=== PATIENT | male | born 1945 | race Caucasian/White ===

== ENCOUNTER → 2016-06-15 | Outpatient (CLI) | payer BC, OTHER ==
[~2016-06-15] MED LIST: ALBUTEROL0.83 MG/ML INH; ASPIRIN ADULT L81 M3 PO; HCTZ 25MG25 MG PO; LISINOPRIL30 MG PO; METFORMIN500 MG PO; MULTI VITAMINS1 TAB PO; NIACINOL500 MG PO; PROSCAR PO; ZOCOR 20MG20 MG PO; ZYLOPRIM 100MG100 MG PO
== END ==
LOC: LAB 08:21
DX: E29.1 Testicular hypofunction (principal)

== ENCOUNTER → 2016-09-19 | Outpatient (CLI) | payer BC, OTHER ==
[2015-02-16 09:28] VITALS: BP 130/67
== END ==
LOC: LAB 08:59
DX: E29.1 Testicular hypofunction (principal); N40.1 Benign prostatic hyperplasia with lower urinary tract symptoms; R39.12 Poor urinary stream

== ENCOUNTER → 2016-12-31 | Outpatient (CLI) | payer BC, OTHER ==
[2015-02-16 09:28] VITALS: BP 130/67
== END ==
LOC: LAB 08:51
DX: Z13.6 Encounter for screening for cardiovascular disorders (principal); I10 Essential (primary) hypertension; E11.9 Type 2 diabetes mellitus without complications

== ENCOUNTER → 2017-01-04 | Outpatient (CLI) | payer BC, OTHER ==
[2015-02-16 09:28] VITALS: BP 130/67
== END ==
LOC: CARDREHAB 09:22
DX: Z13.6 Encounter for screening for cardiovascular disorders (principal); I10 Essential (primary) hypertension; E11.9 Type 2 diabetes mellitus without complications; Z87.891 Personal history of nicotine dependence; Z82.49 Family history of ischemic heart disease and other diseases of the circulatory system; E78.5 Hyperlipidemia, unspecified
CPT/HCPCS: A9500

== ENCOUNTER → 2017-06-20 | Outpatient (CLI) | payer BC, OTHER ==
[2015-02-16 09:28] VITALS: BP 130/67
== END ==
LOC: LAB 09:34
DX: E29.1 Testicular hypofunction (principal)

== ENCOUNTER → 2017-07-03 | Outpatient (CLI) | payer BC, OTHER ==
[2015-02-16 09:28] VITALS: BP 130/67
== END ==
LOC: LAB 10:52
DX: Z13.6 Encounter for screening for cardiovascular disorders (principal); I10 Essential (primary) hypertension; E11.9 Type 2 diabetes mellitus without complications

== ENCOUNTER → 2017-11-20 | Outpatient (CLI) | payer MEDICARE, OTHER ==
[2015-02-16 09:28] VITALS: BP 130/67
== END ==
LOC: RAD 10:51
DX: M19.042 Primary osteoarthritis, left hand (principal)

== ENCOUNTER → 2017-11-25 | Outpatient (CLI) | payer MEDICARE, OTHER ==
[2015-02-16 09:28] VITALS: BP 130/67
[2017-11-25 08:56] LABS: HEMATOCRIT 50.8 % (42.0-52.0); HEMOGLOBIN 16.9 g/dL (13.5-18.0); MEAN PLATELET VOLUME 9.1 fl (7.4-10.4); RED BLOOD COUNT 5.34 M/mm3 (4.20-5.60); RED CELL DISTRIBUTION WIDTH 14.9 % (11.5-14.5); WHITE BLOOD COUNT 6.9 K/mm3 (4.8-10.8)
[2017-11-25 09:18] LABS: ALBUMIN 4.1 g/dL (3.5-5.0); BUN/CREATININE RATIO 17.7 (6.0-26.0); CALCIUM 9.4 mg/dL (8.4-10.2); POTASSIUM 4.3 mmol/L (3.6-5.0); TOTAL BILIRUBIN 1.1 mg/dL (0.2-1.3); TOTAL PROTEIN 7.9 g/dL (6.3-8.2)
[2017-11-25 23:20] LABS: TESTOSTERONE 414 ng/dL (221-716)
== END ==
LOC: LAB 08:36
PROVIDERS: Family Medicine
DX: E29.1 Testicular hypofunction (principal); N40.1 Benign prostatic hyperplasia with lower urinary tract symptoms; R39.12 Poor urinary stream

== ENCOUNTER → 2018-02-24 | Outpatient (CLI) | payer MEDICARE, OTHER ==
[2015-02-16 09:28] VITALS: BP 130/67
[2018-02-24 23:44] LABS: TESTOSTERONE 430 ng/dL (221-716)
== END ==
LOC: LAB 08:22
PROVIDERS: Urology
DX: N40.1 Benign prostatic hyperplasia with lower urinary tract symptoms (principal); E29.1 Testicular hypofunction

== ENCOUNTER → 2018-08-25 | Outpatient (CLI) | payer MEDICARE, OTHER ==
[2015-02-16 09:28] VITALS: BP 130/67
[2018-08-25 08:47] LABS: HEMATOCRIT 52.4 % (42.0-52.0); HEMOGLOBIN 17.6 g/dL (13.5-18.0); MEAN PLATELET VOLUME 10.3 fl (7.4-10.4); RED BLOOD COUNT 5.45 M/mm3 (4.20-5.60); RED CELL DISTRIBUTION WIDTH 14.8 % (11.5-14.5); WHITE BLOOD COUNT 7.1 K/mm3 (4.8-10.8)
[2018-08-26 01:41] LABS: TESTOSTERONE 927 ng/dL (221-716)
== END ==
LOC: LAB 07:47
PROVIDERS: Urology
DX: E29.1 Testicular hypofunction (principal); N40.1 Benign prostatic hyperplasia with lower urinary tract symptoms

== ENCOUNTER → 2019-02-23 | Outpatient (CLI) | payer MEDICARE, OTHER ==
[2015-02-16 09:28] VITALS: BP 130/67
[2019-02-23 08:52] LABS: HEMATOCRIT 50.7 % (42.0-52.0); HEMOGLOBIN 17.3 g/dL (13.5-18.0); MEAN PLATELET VOLUME 9.5 fl (7.4-10.4); RED BLOOD COUNT 5.27 M/mm3 (4.20-5.60); RED CELL DISTRIBUTION WIDTH 14.1 % (11.5-14.5); WHITE BLOOD COUNT 8.2 K/mm3 (4.8-10.8)
== END ==
LOC: LAB 08:30
PROVIDERS: Urology
DX: E29.1 Testicular hypofunction (principal)

== ENCOUNTER → 2019-03-17 | Outpatient (CLI) | payer MEDICARE, OTHER ==
[2015-02-16 09:28] VITALS: BP 130/67
[2019-03-17 09:20] LABS: POTASSIUM 4.1 mmol/L (3.5-5.1)
[2019-03-17 09:21] LABS: ALBUMIN 4.1 g/dL (3.4-4.8)
[2019-03-17 09:22] LABS: CALCIUM 9.7 mg/dL (8.3-10.5)
[2019-03-17 09:23] LABS: TOTAL PROTEIN 7.5 g/dL (6.2-8.1)
[2019-03-17 09:25] LABS: TOTAL BILIRUBIN 1.2 mg/dL (0.2-1.2)
== END ==
LOC: LAB 08:56
PROVIDERS: Family Medicine
DX: Z13.6 Encounter for screening for cardiovascular disorders (principal); I10 Essential (primary) hypertension; E11.9 Type 2 diabetes mellitus without complications; M10.9 Gout, unspecified; E78.2 Mixed hyperlipidemia

== ENCOUNTER → 2019-04-17 | Outpatient (CLI) | payer MEDICARE, OTHER ==
[2015-02-16 09:28] VITALS: BP 130/67
[2019-04-17 09:13] LABS: POTASSIUM 4.3 mmol/L (3.5-5.1)
[2019-04-17 09:14] LABS: CALCIUM 9.3 mg/dL (8.3-10.5)
== END ==
LOC: LAB 08:48
PROVIDERS: Family Medicine
DX: I12.9 Hypertensive chronic kidney disease with stage 1 through stage 4 chronic kidney disease, or unspecified chronic kidney disease (principal); N18.3 Chronic kidney disease, stage 3 (moderate); M10.9 Gout, unspecified

== ENCOUNTER → 2019-05-15 | Outpatient (CLI) | payer MEDICARE, OTHER ==
[2015-02-16 09:28] VITALS: BP 130/67
[2019-05-15 11:22] LABS: POTASSIUM 4.3 mmol/L (3.5-5.1)
[2019-05-15 11:23] LABS: CALCIUM 9.8 mg/dL (8.3-10.5)
== END ==
LOC: LAB 09:35
PROVIDERS: Family Medicine
DX: I12.9 Hypertensive chronic kidney disease with stage 1 through stage 4 chronic kidney disease, or unspecified chronic kidney disease (principal); N18.3 Chronic kidney disease, stage 3 (moderate); M10.9 Gout, unspecified

== ENCOUNTER → 2019-10-22 | Outpatient (CLI) | payer MEDICARE, OTHER ==
[2015-02-16 09:28] VITALS: BP 130/67
[2019-10-22 09:31] LABS: HEMATOCRIT 51.2 % (42.0-52.0); HEMOGLOBIN 17.7 g/dL (13.5-18.0); MEAN PLATELET VOLUME 9.9 fl (7.4-10.4); POTASSIUM 4.5 mmol/L (3.5-5.1); RED BLOOD COUNT 5.23 M/mm3 (4.20-5.60); RED CELL DISTRIBUTION WIDTH 14.1 % (11.5-14.5); WHITE BLOOD COUNT 7.5 K/mm3 (4.8-10.8)
[2019-10-22 09:32] LABS: CALCIUM 9.3 mg/dL (8.3-10.5)
== END ==
LOC: LAB 08:27
PROVIDERS: Urology
DX: N18.3 Chronic kidney disease, stage 3 (moderate) (principal); I12.9 Hypertensive chronic kidney disease with stage 1 through stage 4 chronic kidney disease, or unspecified chronic kidney disease; M10.9 Gout, unspecified; N40.1 Benign prostatic hyperplasia with lower urinary tract symptoms; E29.1 Testicular hypofunction

== ENCOUNTER → 2020-01-11 | Outpatient (CLI) | payer MEDICARE, OTHER ==
[2015-02-16 09:28] VITALS: BP 130/67
[2020-01-11 11:40] LABS: POTASSIUM 4.1 mmol/L (3.5-5.1)
[2020-01-11 11:41] LABS: CALCIUM 9.2 mg/dL (8.3-10.5)
== END ==
LOC: LAB 11:18
PROVIDERS: Family Medicine
DX: I12.9 Hypertensive chronic kidney disease with stage 1 through stage 4 chronic kidney disease, or unspecified chronic kidney disease (principal); N18.3 Chronic kidney disease, stage 3 (moderate)

== ENCOUNTER → 2020-04-13 | Outpatient (CLI) | payer MEDICARE, OTHER ==
[2015-02-16 09:28] VITALS: BP 130/67
[2020-04-13 12:29] LABS: ALBUMIN 4.3 g/dL (3.4-4.8)
[2020-04-13 12:32] LABS: TOTAL PROTEIN 8.2 g/dL (6.2-8.1)
[2020-04-13 12:34] LABS: TOTAL BILIRUBIN 1.7 mg/dL (0.2-1.2)
[2020-04-13 12:37] LABS: DIRECT BILIRUBIN 0.6 mg/dL (0.0-0.5)
== END ==
LOC: LAB 11:54
PROVIDERS: Family Medicine
DX: E78.2 Mixed hyperlipidemia (principal)

== ENCOUNTER → 2020-07-12 | Outpatient (CLI) | payer MEDICARE, OTHER ==
[2015-02-16 09:28] VITALS: BP 130/67
[2020-07-12 08:41] LABS: HEMATOCRIT 51.7 % (42.0-52.0); HEMOGLOBIN 17.6 g/dL (13.5-18.0); MEAN PLATELET VOLUME 10.1 fl (7.4-10.4); RED BLOOD COUNT 5.3 M/mm3 (4.20-5.60); WHITE BLOOD COUNT 7.7 K/mm3 (4.8-10.8)
== END ==
LOC: LAB 07:53
PROVIDERS: Urology
DX: E29.1 Testicular hypofunction (principal)

== ENCOUNTER → 2020-11-09 | Outpatient (CLI) | payer MEDICARE, OTHER ==
[2015-02-16 09:28] VITALS: BP 130/67
[2020-11-09 08:34] LABS: HEMOGLOBIN 16.6 g/dL (13.5-18.0); MEAN PLATELET VOLUME 9.1 fl (7.4-10.4); RED BLOOD COUNT 4.99 M/mm3 (4.20-5.60); RED CELL DISTRIBUTION WIDTH 13.9 % (11.5-14.5); WHITE BLOOD COUNT 7.1 K/mm3 (4.8-10.8)
== END ==
LOC: LAB 08:15
PROVIDERS: Urology
DX: N40.1 Benign prostatic hyperplasia with lower urinary tract symptoms (principal); E29.1 Testicular hypofunction; R39.12 Poor urinary stream

== ENCOUNTER → 2021-04-14 | Outpatient (CLI) | payer MEDICARE, OTHER ==
[2021-04-14 12:00] LABS: ALBUMIN 4.1 g/dL (3.4-4.8); POTASSIUM 4.1 mmol/L (3.5-5.1)
[2021-04-14 12:01] LABS: CALCIUM 9.8 mg/dL (8.3-10.5)
[2021-04-14 12:03] LABS: TOTAL PROTEIN 7.6 g/dL (6.2-8.1)
[2021-04-14 12:04] LABS: TOTAL BILIRUBIN 1.3 mg/dL (0.2-1.2)
== END ==
LOC: LAB 11:21
PROVIDERS: Family Medicine
DX: Z00.00 Encounter for general adult medical examination without abnormal findings (principal); Z12.5 Encounter for screening for malignant neoplasm of prostate; E78.2 Mixed hyperlipidemia; R73.03 Prediabetes

== ENCOUNTER → 2021-11-08 | Outpatient (CLI) | payer MEDICARE, OTHER ==
[2021-11-08 16:11] LABS: BASO # 0.05 K/mm3 (0.02-0.10); EOS # 0.14 K/mm3 (0.04-0.40); EOS % 1.5 % (0.0-4.0); HEMOGLOBIN 15.2 g/dL (13.5-18.0); LYMPH# 2.24 K/mm3 (1.50-4.00); MEAN CELL VOLUME 99 fl (78-100); MEAN CORPUSCULAR HEMOGLOBIN 34 pg (27-31); MEAN CORPUSCULAR HGB CONC 34 g/dL (33-37); MEAN PLATELET VOLUME 8.4 fl (7.4-10.4); MONO # 0.86 K/mm3 (0.20-0.80); NEU # 6.34 K/mm3 (1.40-6.50); PLATELET COUNT 174 K/mm3 (130-400); RED BLOOD COUNT 4.53 M/mm3 (4.20-5.60); RED CELL DISTRIBUTION WIDTH 13.1 % (11.5-14.5); WHITE BLOOD COUNT 9.7 K/mm3 (4.8-10.8)
[2021-11-08 16:30] LABS: POTASSIUM 4.3 mmol/L (3.5-5.1)
[2021-11-08 16:31] LABS: CALCIUM 9.8 mg/dL (8.3-10.5)
[2021-11-08 17:43] LABS: ERYTHROCYTE SEDIMENTATION RATE 18 mm/hr (0-20)
== END ==
LOC: LAB 14:24 → RAD 14:24
PROVIDERS: Family Medicine
DX: M79.672 Pain in left foot (principal)

== ENCOUNTER → 2021-11-22 | Outpatient (CLI) | payer MEDICARE, OTHER | LOC: RAD 10:25 → LAB 10:25 | DX: L89.899 Pressure ulcer of other site, unspecified stage (principal) ==

== ENCOUNTER → 2022-01-15 | Outpatient (CLI) | payer MEDICARE, OTHER ==
[2022-01-15 08:50] LABS: HEMATOCRIT 41.8 % (42.0-52.0); HEMOGLOBIN 13.8 g/dL (13.5-18.0); MEAN PLATELET VOLUME 8.5 fl (7.4-10.4); RED BLOOD COUNT 4.29 M/mm3 (4.20-5.60); RED CELL DISTRIBUTION WIDTH 14.8 % (11.5-14.5); WHITE BLOOD COUNT 7.7 K/mm3 (4.8-10.8)
[2022-01-15 11:32] LABS: URINE COLOR YELLOW
[2022-01-15 11:33] LABS: PH-URINE 5.5 (5.0 - 8.0); URINE APPEARANCE CLEAR; URINE BILIRUBIN NEGATIVE (NEGATIVE); URINE BLOOD TRACE (NEGATIVE); URINE GLUCOSE NEGATIVE (NEGATIVE); URINE KETONE 1+ (NEGATIVE); URINE LEUKOCYTE ESTERASE TRACE (NEGATIVE); URINE NITRATE NEGATIVE (NEGATIVE); URINE PROTEIN(semi-quant) TRACE (NEGATIVE); URINE UROBILINOGEN NORMAL (NORMAL)
[2022-01-15 11:35] LABS: URINE MUCUS PRESENT (NOT PRESENT)
== END ==
LOC: LAB 08:22
PROVIDERS: Urology
DX: E29.1 Testicular hypofunction (principal); N40.1 Benign prostatic hyperplasia with lower urinary tract symptoms; R31.0 Gross hematuria

== ENCOUNTER → 2022-04-03 | Outpatient (CLI) | payer MEDICARE, OTHER ==
[2022-04-03 09:09] LABS: HEMATOCRIT 37.7 % (42.0-52.0); HEMOGLOBIN 12.6 g/dL (13.5-18.0); MEAN PLATELET VOLUME 8.3 fl (7.4-10.4); RED BLOOD COUNT 4.06 M/mm3 (4.20-5.60); RED CELL DISTRIBUTION WIDTH 13.7 % (11.5-14.5); WHITE BLOOD COUNT 5.8 K/mm3 (4.8-10.8)
[2022-04-03 11:54] LABS: URINE APPEARANCE HAZY; URINE BILIRUBIN NEGATIVE (NEGATIVE); URINE BLOOD TRACE (NEGATIVE); URINE COLOR YELLOW; URINE GLUCOSE NEGATIVE (NEGATIVE); URINE KETONE NEGATIVE (NEGATIVE); URINE LEUKOCYTE ESTERASE NEGATIVE (NEGATIVE); URINE MUCUS PRESENT (NOT PRESENT); URINE NITRATE NEGATIVE (NEGATIVE); URINE PROTEIN(semi-quant) TRACE (NEGATIVE); URINE UROBILINOGEN NORMAL (NORMAL)
== END ==
LOC: LAB 08:51
PROVIDERS: Urology
DX: E29.1 Testicular hypofunction (principal); R31.0 Gross hematuria

== ENCOUNTER → 2022-05-02 | Outpatient (RCR) | payer MEDICARE, OTHER | LOC: PT | DX: M25.641 Stiffness of right hand, not elsewhere classified (principal) ==

== ENCOUNTER 2022-06-05 08:00 | Outpatient (RCR) | payer MEDICARE, OTHER | END 2022-07-03 13:12 | disposition home or self-care (01) | LOC: PT 08:00 | DX: S91.301D Unspecified open wound, right foot, subsequent encounter (principal); M25.641 Stiffness of right hand, not elsewhere classified; X58.XXXD Exposure to other specified factors, subsequent encounter ==

== ENCOUNTER → 2023-04-01 | Outpatient (CLI) | payer MEDICARE, OTHER ==
[2023-04-01 08:23] LABS: HEMOGLOBIN 14.8 g/dL (13.5-18.0); MEAN PLATELET VOLUME 9.5 fl (7.4-10.4); RED BLOOD COUNT 4.35 M/mm3 (4.20-5.60); RED CELL DISTRIBUTION WIDTH 13.2 % (11.5-14.5); WHITE BLOOD COUNT 5.8 K/mm3 (4.8-10.8)
== END ==
LOC: LAB 08:07
PROVIDERS: Urology
DX: N40.1 Benign prostatic hyperplasia with lower urinary tract symptoms (principal); E29.1 Testicular hypofunction; R39.12 Poor urinary stream

== ENCOUNTER → 2023-07-26 | Outpatient (CLI) | payer MEDICARE, OTHER ==
[2023-07-26 12:03] LABS: HEMATOCRIT 45.7 % (42.0-52.0); HEMOGLOBIN 15.3 g/dL (13.5-18.0); MEAN PLATELET VOLUME 9.6 fl (7.4-10.4); RED BLOOD COUNT 4.51 M/mm3 (4.20-5.60); RED CELL DISTRIBUTION WIDTH 13.9 % (11.5-14.5); WHITE BLOOD COUNT 6.6 K/mm3 (4.8-10.8)
[2023-07-26 12:11] LABS: ALBUMIN 4.4 g/dL (3.4-4.8)
[2023-07-26 12:12] LABS: CALCIUM 10.3 mg/dL (8.3-10.5)
[2023-07-26 12:13] LABS: TOTAL PROTEIN 7.7 g/dL (6.2-8.1)
== END ==
LOC: LAB 11:41
PROVIDERS: Family Medicine
DX: I10 Essential (primary) hypertension (principal); E78.2 Mixed hyperlipidemia; R73.03 Prediabetes; Z87.39 Personal history of other diseases of the musculoskeletal system and connective tissue

== ENCOUNTER → 2023-11-29 | Outpatient (CLI) | payer MEDICARE, OTHER ==
[2023-11-29 11:54] LABS: CALCIUM 9.9 mg/dL (8.3-10.5)
== END ==
LOC: LAB 11:03
PROVIDERS: Family Medicine
DX: I10 Essential (primary) hypertension (principal)

== ENCOUNTER → 2024-02-28 | Outpatient (CLI) | payer MEDICARE, OTHER ==
[2024-02-28 10:16] LABS: CALCIUM 10.3 mg/dL (8.3-10.5)
== END ==
LOC: LAB 09:43
PROVIDERS: Family Medicine
DX: I10 Essential (primary) hypertension (principal)

== ENCOUNTER → 2024-05-28 | Outpatient (CLI) | payer MEDICARE, OTHER | LOC: RAD 12:34 | DX: M23.41 Loose body in knee, right knee (principal) ==

== ENCOUNTER → 2024-07-07 | Outpatient (CLI) | payer MEDICARE, OTHER | LOC: RAD 10:09 | DX: M22.41 Chondromalacia patellae, right knee (principal); M23.8X1 Other internal derangements of right knee; S83.241A Other tear of medial meniscus, current injury, right knee, initial encounter; S83.281A Other tear of lateral meniscus, current injury, right knee, initial encounter ==

== ENCOUNTER → 2024-08-24 | Outpatient (CLI) | payer MEDICARE, OTHER ==
[2024-08-24 09:55] LABS: CALCIUM 9.7 mg/dL (8.3-10.5)
== END ==
LOC: LAB 09:26
PROVIDERS: Family Medicine
DX: E11.9 Type 2 diabetes mellitus without complications (principal); I10 Essential (primary) hypertension